=== PATIENT | female | born 1955 | race Caucasian/White ===

== ENCOUNTER 2016-07-29 13:49 | Emergency (ER) | payer OTHER ==
[~2016-07-29] VITALS: Ht 154.9 cm; Wt 79.4 kg
[~2016-07-29 13:49] MED LIST: AFRIN30 ML NASB; ALBUTEROL2.5 MG/3 M INH/SOL; AMOXICILLIN875 M1 PO; AUGMENTIN 875875 MG PO; BACTRIM DS 8001 TAB PO; CIPRO 500MG TA500 MG PO; DIFLUCAN150 MG PO; PREDNISONE10 MG PO; PREDNISONE20 M1 PO; PYRIDIUM200 MG PO; TESSALON PERLE100 M1 PO; TESSALON PERLE100 MG PO
--- NOTE | 2016-07-29 15:17 | ED DYSPNEA/ASTHMA COMPLAINT ---
History of Present Illness General Chief Complaint: Wheezing/Asthma Stated Complaint: ASTHMA ATTACK Source: patient, family, old records Exam Limitations: no limitations Vital Signs & Intake/Output Vital Signs & Intake/Output Vital Signs Date Time Temp Pulse Resp B/P Pulse O2 O2 Flow FiO2 Ox Delivery Rate 07/29 1731 98.4 79 16 174/86 98 Room Air 07/29 1545 97 07/29 1447 Room Air 07/29 1353 97.8 80 20 168/90 100 Room Air Allergies Coded Allergies: MDX - Codeine (CODEINE) (Intermediate, RASH, VOMITING 02/17/15) MDX - Acetaminophen (From Vicodin) (UNKNOWN 02/17/15) MDX - Hydrocodone (From Vicodin) (UNKNOWN 02/17/15) Reconcile Medications Albuterol Sulfate 2.5 MG/3 ML VIAL.NEB 1 Vial INH/EMELY Q4P PRN wheezing Amoxicillin 500 MG CAPSULE 1 TAB PO TID INFECTION Amoxicillin 875 MG TABLET 1 TAB PO BID sinusitis Amoxicillin/Clavulanate Potass (Amox-Clav 875-125 MG Tablet) 875 MG TAB 1 TAB PO BID BRONCHITIS Benzonatate (Tessalon Perle) 100 MG SGL 1 TAB PO Q8P PRN COUGH Benzonatate (Tessalon Perle) 100 MG CAPSULE 1 CAP PO TID cough Ciprofloxacin (Cipro) 500 MG TAB 1 TAB PO BID UTI Fluconazole (Diflucan) 150 MG TAB 1 TAB PO ONCE YEAST INFECTION MAY REPEAT IN 7 DAYS IF NEEDED Oxymetazoline HCl (Afrin) 30 ML SPRAY 2 SPRAY NASB BID sinusitis Phenazopyridine Hydrochlorid2 (Pyridium) 200 MG TAB 1 TAB PO TID URINARY TRACT MAY TURN YOUR URINE ORANGE Prednisone (Deltasone) 20 MG TABLET 3 TAB PO DAILY ASTHMA Prednisone 10 MG TAB 0 TAB PO DAILY BRONCHITIS TAKE 4 PILLS A DAY FOR 3 DAYS THEN TAKE 3 PILLS A DAY FOR 3 DAYS THEN TAKE 2 PILLS A DAY FOR 3 DAYS THEN TAKE 1 PILL A DAY FOR 3 DAYS Prednisone 20 MG TABLET 1 TAB PO BID sinusitis Sulfamethoxazole/Trimethopri (Bactrim Ds 800 MG-160 MG) 1 TAB TAB 1 TAB PO BID UTI Triage Note: PT STATES SHE IS HAVING AN ASTHMA ATTACK. PT REPORTS HAVING A COLD LAST TUESDAY AND WENT TO PCP WHO TOLD HER TO JUST "RIDE IT OUT". PT STATSE SHE FEELS LIKE HER ASTHMA IS ACTING UP. Triage Nurses Notes Reviewed? yes HPI: Patient presents for evaluation of an exacerbation of asthma. Patient states she has had cold symptoms off and on for months. States she saw her primary care physician this week who thought she had a viral illness. Patient states that she is simply not doing very well at home despite the use of her nebulizers Symbicort and a rescue inhaler. He is having a central and upper chest tightness with a nonproductive cough and frequent throat clearing. There has been no phlegm production at this point. He is also feeling some pressure in the ears and is concerned about an ear infection. Symptoms are described as moderate to severe and worse with exertion. Nothing at this point seems to make her feel better. Past History Travel History Traveled to [place] past 21 day No Medical History Any Pertinent Medical History? 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 No Review of Systems Review of Systems Constitutional: Reports: no symptoms. EENTM: Reports: no symptoms. Respiratory: Reports: see HPI. Cardiovascular: Reports: no symptoms. GI: Reports: no symptoms. Genitourinary: Reports: no symptoms. Musculoskeletal: Reports: no symptoms. Skin: Reports: no symptoms. Neurological/Psychological: Reports: no symptoms. Hematologic/Endocrine: Reports: no symptoms. Immunologic/Allergic: Reports: no symptoms. All Other Systems: Reviewed and Negative Physical Exam Physical Exam Respiratory: SEE BELOW Comments: Gen.: Well-nourished, well-developed, no acute respiratory distress. Head: Normocephalic, atraumatic. Eyes: Normal inspection bilaterally Ears: Normal inspection bilaterally Nose: Normal inspection Throat/mouth : Moist mucosa Neck: Supple, full range of motion, no goiter Heart: Regular rate and rhythm, no murmurs rubs or gallops Lungs: Faint expiratory wheezes with otherwise normal air entry and no rhonchi Chest: Nontender Back: Normal range of motion Abdomen: Soft, nontender, nondistended, normal bowel sounds Extremities: Normal range of motion grossly, equal radial pulses, no cyanosis Neurologic: Cranial nerves grossly intact, speech is clear Skin: warm and dry Psychiatric: Calm, cooperative, no apparent delusions or hallucinations Core Measures ACS in differential dx? No Severe Sepsis Present: No Septic Shock Present: No Progress Differential Diagnosis: bronchitis, pneumonia, uri, asthma Plan of Care: Current Medications Sig/Kaci Start time Last Medication Dose Stop Time Status Admin Albuterol Sulfate 3 ML ONCE ONE 07/29 1699 UNVr (Proventil) 07/29 1700 Initial ED EKG: none Comments: Chest x-ray discussed the patient feels it's not necessary at this time. 07/29/2016 4:56:31 PM Ewa is feeling better as the result of the Solu-Medrol and the DuoNeb. She feels that another nebulizer here in the emergency department would be beneficial. Unfortunately the patient seems to have developed a small hematoma and area of inflammation associated with the IM Solu- Medrol. There is mild swelling and induration of the left lateral deltoid. The left upper extremity is otherwise neurovascularly intact (she states she is having pain radiating down into the left forearm with associated numbness). She did take a dose of ibuprofen earlier today and I think this may have contributed to a bit of bleeding with the IM injection. Plan redness, continued nebulizers at home, and antibiotic coverage (patient states that she typically does very well when treated with an antibiotic). Regarding her left upper extremity, cool compresses over the next 24-48 hours followed by warm compresses. Departure Departure Disposition: HOME OR SELF CARE Condition: Stable Clinical Impression Primary Impression: Asthma exacerbation Secondary Impressions: Traumatic hematoma of left upper arm Qualifiers: Encounter type: initial encounter Qualified Code: S40.022A - Contusion of left upper arm, initial encounter Referrals: ALEXSANDER ZUNIGA,JASON Villavicencio (PCP/Family) Additional Instructions: Continue your asthma medications and add the prednisone. Augmentin as prescribed. Follow-up with your primary care doctor on Tuesday for reevaluation. Apply cool compresses to your left arm 3 times per day for the next 2 days then switch to a warm compress. Return if any concerns or sudden worsening. Thank you for choosing the [facility] Emergency Department for your care. It was a pleasure to serve you today. Johny Melvin M.D. [facility] Departure Forms: Customer Survey General Discharge Information Prescriptions: Current Visit Scripts Prednisone (Deltasone) 3 TAB PO DAILY #12 TAB Amoxicillin 1 TAB PO TID #21 TAB Critical Care Note Critical Care Note Critical Care Time: 30-74 min
[2016-07-29 17:31] VITALS: BP 174/86
[2016-07-29] MEDS ORDERED: AMOXICILLIN500 M2 PO (17:40)
[2016-07-29] MEDS ORDERED: DELTASONE20 MG PO (17:40)
== END 2016-07-29 17:47 ==
LOC: ERH 13:49
DX: S40.022A Contusion of left upper arm, initial encounter (principal); J45.901 Unspecified asthma with (acute) exacerbation; Z87.891 Personal history of nicotine dependence; R07.89 Other chest pain; W46.0XXA Contact with hypodermic needle, initial encounter
CPT/HCPCS: 1263; 96372; J2930